=== PATIENT | female | born 1945 | race African-American/Black ===

== ENCOUNTER 2016-07-09 16:22 | Emergency (ER) | payer OTHER ==
--- NOTE | ~2016-07-09 | ER ---
Unit #: [id number] #: [id number] Patient: JUSTINA SEVILLA [id number] [address] [place], [place] [address] [id number] MR#: [id number] NAME: JUSTINA SEVILLA. ROOM: Sex: F Age: 70 : 1945 Service Date: 07/09/2016 Attending Physician: Eloy Harden M.D. Primary Care Physician: Andie Jimenez [facility] EMERGENCY DEPT PHYSICIAN NOTE Please see the written T-sheet for the full details of the encounter. Ms. Sevilla is a 70-year-old woman, who presented to the emergency department after being referred here by her primary doctor for evaluation of a cough that had been present over the last six months. Ms. Sevilla says that she had had a persistent, nonproductive cough, over the last six months and had been to see her doctor multiple times about this issue; however, despite multiple different treatments for the cough it always returned and has been present, to some degree, for these last six months. Today. The patient went to see her primary doctor, and told them that, in addition to the cough, she would occasionally have substernal pain associated with the cough. Based on this symptomatology, her primary doctor told the patient that she desired to have the patient ruled out for PE as the cause of her cough and chest pain. However, they did not order the study, they, instead told her to go the emergency department and tell the emergency physician that this is what her doctor wanted. I explained to the patient that due to the chronicity of this complaint, and the history that was not consistent with blood clot, it would be very low on my differential for what was causing her symptoms. I further explained to the patient that I would unable to do the test that her primary care doctor requested as she is allergic to IV dye and has decreased kidney function. The patient seemed upset by this and reiterated to me that she did not want any testing except for a CAT scan to rule out blood clot. I again explained to the patient that this was not a possibility but that I would attempt to rule out blood clot with a blood test called D-dimer. The patient was reluctant to undergo additional testing; however, did eventually consent. Blood work, unfortunately, showed a positive D-dimer and thus a VQ scan was ordered to rule out blood clot. However, I was informed, after ordering the test, that the nurse was having difficulty establishing an IV, and that the patient grew increasingly intolerant of being stuck for an IV and in fact, demanded that they remove an IV which seemed to be functioning normally. At that point, the patient stated she no longer wanted to be in the emergency department and wanted to decline all further testing. I explained to the patient that, although my suspicion was that her cough was due to her lisinopril and that, that would need to be addressed with her primary doctor, as soon as possible to attempt to get the patient on an alternative medication, that with a positive D-Dimer I could not conclusively rule out blood clot as the potential cause for her symptoms. I went on to explain to the patient that if this was the case and she did Unit #: [id number] #: [id number] Patient: JUSTINA SEVILLA have a blood clot it could be potentially life threatening. The patient understood this and adamantly refused an IV placement and refused to have the VQ scan done. She understood the consequences of her leaving against medical advance and were able to repeat them back to me. I advised the patient that she should contact her family physician as soon as possible to discuss alternatives to lisinopril and that if they desired to have the CAT scan done to rule out pulmonary embolism, that it might be possible to premedicate the patient and obtain it or order a VQ scan as an outpatient. The patient was also encouraged to return to the hospital should she change her mind and desire additional testing. Dictated by... Brooks Martínez/denzel TD: 07/10/2016 13:24 JOB #: [id number] EMERGENCY DEPT PHYSICIAN NOTE Page 1 of 1 X Eloy Harden MD EMERGENCY DEPARTMENT REPORT
--- NOTE | ~2016-07-09 | EKG ---
PATIENT: JUSTINA ROTHMAN UNIT #: [id number] Ventricular Rate: 83 BPM Atrial Rate: 83 BPM P-R Interval: 156 ms QRS Duration: 116 ms Q-T Interval: 454 ms QTC Calculation(Bezet): 533 ms P [place]: 41 degrees Calculated R [place]: -14 degrees Calculated T [place]: 130 degrees Diagnosis Line: Normal sinus rhythm Diagnosis Line: Low voltage QRS Diagnosis Line: Incomplete left bundle branch block Diagnosis Line: Nonspecific ST and T wave abnormality Diagnosis Line: Abnormal ECG Diagnosis Line: No previous ECGs available Diagnosis Line: Confirmed by KATEY JIMENEZ MD ([id number]) on Diagnosis Line: 07/10/2016 4:28:38 PM INTERPRETING MD: BARBARA GILL
--- NOTE | ~2016-07-09 | CR72 ---
[facility] A Service of [facility] RADIOLOGY TEXT RESULTS PATIENT: JUSTINA ROTHMAN LOCATION: [facility] : 41 UNIT #: [id number] AGE: [address]: Eloy Harden MD SEX: F ORDER DR: [id number] [facility] [address] [place], [place] [address] [id number] E MR#: [id number] Acc #: [id number] NAME: JUSTINA ROTHMAN. : 1945 SEX: F STUDY DATE/TIME: 07/09/2016 18:01 UNIT: ROBY ROOM: STUDY DESCRIPTION: CR Chest Single View Portable Attending Physician: Eloy Harden M.D. Ordering Physician: Eloy Harden M.D. Primary Care Physician: Andie Licona M.D. MEDICAL IMAGING REPORT This report is preliminary unless electronic signature is present EXAM AP radiograph chest. HISTORY Cough 6-7 months. Possible blood clot sent by [facility] yesterday, hypertension, CHF. Symptoms began yesterday. REPORT AP radiograph of the chest is presented. COMPARISON 10/23/2008. FINDINGS Status post median sternotomy, CABG and coronary artery stenting. Mildly tortuous thoracic aorta. Heart normal in size. The lungs are well inflated without indication of acute infectious or inflammatory disease, pleural effusion or pneumothorax. No suspicious nodule. Calcified granuloma left upper lobe. Degenerative changes in the spine. No acute-appearing bony abnormality. Dictated by... Geronimo Mcfarland M.D. THIS IS AN ELECTRONICALLY VERIFIED REPORT Geronimo Mcfarland M.D. at 07/13/2016 11:00 PM LORA/oswaldo TD: 07/09/2016 23:04 JOB #: [id number] [facility] A Service [facility] RADIOLOGY TEXT RESULTS PATIENT: JUSTINA ROTHMAN LOCATION: [facility] : 41 UNIT #: [id number] AGE: [address]: Eloy Harden MD SEX: F ORDER DR: MEDICAL IMAGING REPORT Page 1 of 1 COPY
[~2016-07-09 16:22] MED LIST: ASPIRIN PO; ATENOLOL PO; COREG PO; GLYBURIDE; HUMULIN 70/30 PE3 ML INJ; ISMO20 MG PO; KCL PO; NITROGYLCERIN SUBLINGUAL; NORVASC PO; PLAVIX PO; REFLUX MEDICATION; VYTORIN 10/40 T1 TAB PO; ZESTRIL5 MG PO; ZOCOR PO
[2016-07-09 18:20] LABS: BASOPHIL% 0.5 % (0-2.5); EOSINOPHIL# 0.1 X10e3 (0-0.7); EOSINOPHIL% 1.7 % (0.0-7.0); HEMATOCRIT 33.5 % (35.0-45.0); HEMOGLOBIN 11.1 gm/dL (12.0-16.0); LYMPHOCYTE# 2.9 X10e3 (1.0-3.5); LYMPHOCYTE% 35.9 % (17.0-45.0); MEAN CELL VOLUME 98.5 FL (83-96); MEAN CORPUSCULAR HEMOGLOBIN 32.6 PG (28-34); MEAN CORPUSCULAR HGB CONC 33.1 g/dL (30-36); MONOCYTE# 0.6 X10e3 (0-1.0); NEUTROPHIL# 4.5 X10e3 (1.5-7.1); NEUTROPHIL% 54.9 % (40-75); PLATELET COUNT 221 X10e3 (140-420); RED CELL DISTRIBUTION WIDTH 13.2 % (11.0-15.5); WHITE BLOOD COUNT 8.2 X10e3 (4.0-10.5)
[2016-07-09 18:21] LABS: DIFF IND NO
[2016-07-09 18:45] LABS: ALBUMIN SERUM 4.2 g/dL (3.5-5.0); BILIRUBIN, DIRECT 0.1 mg/dL (0.0-0.2); BILIRUBIN,INDIRECT 0.5 mg/dL (0.0-0.9); BILIRUBIN,TOTAL 0.6 mg/dL (0.2-2.0); BUN/CREATININE RATIO 16.66; CALCIUM SERUM 9.1 mg/dL (8.4-10.2); CREATININE SERUM 1.2 mg/dL (0.6-1.4); GLOM FILT RATE Estimated 52.3 mL/min (>60); POTASSIUM 3.8 mmol/L (3.5-5.1); PROTEIN TOTAL SERUM 7.9 g/dL (6.0-8.3)
== END 2016-07-09 19:45 | disposition home or self-care (01) ==
LOC: CED 16:22
PROVIDERS: Emergency Medicine
DX: R05 Cough (principal); R74.8 Abnormal levels of other serum enzymes; E11.9 Type 2 diabetes mellitus without complications; E78.5 Hyperlipidemia, unspecified; I11.0 Hypertensive heart disease with heart failure; I50.9 Heart failure, unspecified; I25.2 Old myocardial infarction; I25.10 Atherosclerotic heart disease of native coronary artery without angina pectoris; Z95.1 Presence of aortocoronary bypass graft; Z88.2 Allergy status to sulfonamides; Z88.0 Allergy status to penicillin
CPT/HCPCS: 36415; 71010; 80048; 80076; 83880; 85025; 85379; 93005; 99284